=== PATIENT | male | born 1985 | race Caucasian/White ===

== ENCOUNTER 2021-10-31 07:29 | Outpatient (CLI) | payer BC | END 2021-10-31 07:30 | disposition home or self-care (01) | LOC: ULT 07:29 | PROVIDERS: ATTEND Internal Medicine Rheumatology | DX: R79.89 Other specified abnormal findings of blood chemistry (principal); M45.0 Ankylosing spondylitis of multiple sites in spine; Z79.899 Other long term (current) drug therapy | CPT/HCPCS: 76705 ==

== ENCOUNTER 2023-10-09 14:14 | Outpatient (CLI) | payer BC | END 2023-10-09 14:15 | disposition home or self-care (01) | LOC: BICRAD 14:14 | PROVIDERS: ATTEND Internal Medicine Rheumatology | DX: M46.1 Sacroiliitis, not elsewhere classified (principal); M45.0 Ankylosing spondylitis of multiple sites in spine; M47.816 Spondylosis without myelopathy or radiculopathy, lumbar region; M16.0 Bilateral primary osteoarthritis of hip; M25.752 Osteophyte, left hip; M25.751 Osteophyte, right hip | CPT/HCPCS: 72100; 72202 ==